=== PATIENT | female | born 1975 | race Caucasian/White ===

== ENCOUNTER → 2017-04-19 | Outpatient (CLI) | payer OTHER | LOC: FIMAGING 16:18 | PROVIDERS: ATTEND Obstetrics & Gynecology | DX: Z12.31 Encounter for screening mammogram for malignant neoplasm of breast (principal) ==

== ENCOUNTER 2017-04-24 09:40 | Emergency (ER) | payer OTHER ==
[2017-04-24 09:46] VITALS: TEMP 98.1
[2017-04-24] MEDS ORDERED: ASPIRIN 81 MG CHEWABLE TAB PO ONE (09:55)
--- NOTE | 2017-04-24 09:57 | EDPHY ---
H & P Stated Complaint: mid abd discomfort since ;today has intermittent burning pain chest Time Seen by Provider: 04/24/17 09:55 HPI/ROS: CHIEF COMPLAINT: Chest pain since this morning with antecedent epigastric pain HISTORY OF PRESENT ILLNESS: 41-year-old female awoke at 8:00 a.m. Complaining of left-sided chest pain radiating to her left upper extremity with dyspnea. The pain is not reproducible with palpation range of motion. No nausea or vomiting. No diaphoresis. She notes for the past 6 days she has been experiencing mild epigastric discomfort with no nausea or vomiting no chest pain. She last exercised 4 days ago, was rock climbing and did not experience chest pain, dyspnea, did not have to cease activity prematurely. REVIEW OF SYSTEMS: A ten point review of systems was performed and is negative with the exception of the items mentioned in the HPI PAST MEDICAL & SURGICAL HISTORY: History of hyperlipidemia. 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 Appears anxious 2) HEAD: Normocephalic, atraumatic 3) HEENT: Pupils equal, round, reactive to light bilaterally. Sclera anicteric. Nasopharynx, oropharynx, clear, no lesions. Ears bilaterally with normal tympanic membranes. 4) NECK: Full range of motion, no meningeal signs. No bruit 5) LUNGS: Clear auscultation bilaterally, no wheezes, no rhonchi, no retractions. 6) HEART: Regular rate and rhythm, no murmur, no heave, no gallop. 7) ABDOMEN: No guarding, no rebound, no focal tenderness, negative McBurney's, negative Chase's, negative Rovsing's, negative peritoneal sign, 8) MUSCULOSKELETAL: Moving all extremities, no focal areas of tenderness, no obvious trauma. No peripheral edema or discoloration. Negative Homans no palpable cord 9) BACK: No CVA tenderness, no midline vertebral tenderness, no fluctuance, no step-off, no obvious trauma, no visual or palpable abnormality. 10) SKIN: No rash, no petechiae. 11) Psychiatric: Patient is oriented X 3, there is no agitation. DIFFERENTIAL DIAGNOSIS: In no particular order, including but not limited to myocardial ischemia, pulmonary embolus, chest wall pain, pleural inflammation and pulmonary infectious causes. - Personal History LMP (Females 10-55): 8-14 Days Ago Current Tetanus Diphtheria and Acellular Pertussis (TDAP): Yes - Medical/Surgical History Hx Asthma: No Hx Chronic Respiratory Disease: No Hx Diabetes: No Hx Cardiac Disease: No Hx Renal Disease: No Hx Cirrhosis: No Hx Alcoholism: No Hx HIV/AIDS: No Hx Splenectomy or Spleen Trauma: No Other PMH: cholesterol - Social History Smoking Status: Current every day smoker Constitutional: Initial Vital Signs Temperature (C) 36.7 C 04/24/17 09:40 Heart Rate 71 04/24/17 09:40 Respiratory Rate 18 04/24/17 09:40 Blood Pressure 101/73 04/24/17 09:40 O2 Sat (%) 99 04/24/17 09:40 O2 Delivery Mode Room Air Allergies/Adverse Reactions: No Known Allergies Allergy (Verified 04/24/17 09:41) Home Medications: Medication Instructions Recorded NK [No Known Home Meds] 04/24/17 Medical Decision Making - Diagnostics Imaging Results: Imaging Impressions Chest X-Ray 04/24/17 09:55 Impression: No significant radiographic abnormality. Specifically, a source for chest pain is not identified. ED Course/Re-evaluation: 9:57 a.m.: Will obtain laboratory studies. Care of patient under supervision of secondary supervising physician Dr Ignacio Russell with whom I discussed case. 11:45 a.m.: Case discussed again with Dr. Ignacio Galloway. Patient has negative 1st set of troponin. Noon would be 4 hr from onset of symptoms. Will obtain repeat troponin. If this is negative will plan on discharge home with close follow-up with PCP and Cardiology. I discussed this with the patient she is agreeable with this. She does state that he is feeling "totally better" at this time. In addition I think that negative D-dimer adequately excludes PE in this patient whom I have a low to medium risk. 1:20 p.m.: Re-evaluation, discussed her negative repeat troponin which I think adequately excludes at a high. Addition, Patient was noted to be exercising vigorously 3 days ago was asymptomatic at that time. I think that cardiac etiology is less than likely in this patient. Plan will be discharge, given follow-up information with Cardiology and her primary care provider. She feels comfortable being discharged. All questions and concerns addressed by myself. Usual customary discharge precautions instructions provided. She is currently asymptomatic. - Data Points Laboratory Results: Laboratory Results 04/24/17 10:10 04/24/17 10:10 04/24/17 04/24/17 04/24/17 12:05 10:10 10:10 WBC RBC Hgb Hct MCV MCH MCHC RDW Plt Count MPV Neut % (Auto) Lymph % (Auto) [place] % (Auto) Eos % (Auto) Baso % (Auto) Nucleat RBC Rel Count Absolute Neuts (auto) Absolute Lymphs (auto) Absolute Monos (auto) Absolute Eos (auto) Absolute Basos (auto) Absolute Nucleated RBC Immature Gran % Immature Gran # D-Dimer Sodium 139 mEq/L mEq/L (135-145) Potassium 4.1 mEq/L mEq/L (3.5-5.2) Chloride 109 mEq/L mEq/L (97-110) Carbon Dioxide 18 mEq/l L mEq/l (22-31) Anion Gap 12 mEq/L mEq/L (8-16) BUN 11 mg/dL mg/dL (7-23) Creatinine 0.9 mg/dL mg/dL (0.6-1.0) Estimated GFR > 60 Glucose 88 mg/dL mg/dL (70-100) Calcium 9.0 mg/dL mg/dL (8.5-10.4) Total Bilirubin 0.6 mg/dL mg/dL (0.1-1.4) Conjugated Bilirubin 0.2 mg/dL mg/dL (0.0-0.5) Unconjugated Bilirubin 0.4 mg/dL mg/dL (0.0-1.1) AST 18 IU/L IU/L (14-46) ALT 37 IU/L IU/L (9-52) Alkaline Phosphatase 44 IU/L IU/L (38-126) Troponin I < 0.012 ng/mL ng/mL < 0.012 ng/mL ng/mL (0.000-0.034) (0.000-0.034) Total Protein 6.3 g/dL g/dL (6.3-8.2) Albumin 3.7 g/dL g/dL (3.5-5.0) Lipase 73 IU/L IU/L (23-300) Beta HCG, Qual NEGATIVE 04/24/17 04/24/17 10:10 10:10 WBC 6.46 10^3/uL 10^3/uL (3.80-9.50) RBC 4.94 10^6/uL 10^6/uL (4.18-5.33) Hgb 14.9 g/dL g/dL (12.6-16.3) Hct 44.4 % % (38.0-47.0) MCV 89.9 fL fL (81.5-99.8) MCH 30.2 pg pg (27.9-34.1) MCHC 33.6 g/dL g/dL (32.4-36.7) RDW 12.3 % % (11.5-15.2) Plt Count 301 10^3/uL 10^3/uL (150-400) MPV 9.5 fL fL (8.7-11.7) Neut % (Auto) 65.0 % % (39.3-74.2) Lymph % (Auto) 26.0 % % (15.0-45.0) [place] % (Auto) 5.9 % % (4.5-13.0) Eos % (Auto) 2.2 % % (0.6-7.6) Baso % (Auto) 0.6 % % (0.3-1.7) Nucleat RBC Rel Count 0.0 % % (0.0-0.2) Absolute Neuts (auto) 4.20 10^3/uL 10^3/uL (1.70-6.50) Absolute Lymphs (auto) 1.68 10^3/uL 10^3/uL (1.00-3.00) Absolute Monos (auto) 0.38 10^3/uL 10^3/uL (0.30-0.80) Absolute Eos (auto) 0.14 10^3/uL 10^3/uL (0.03-0.40) Absolute Basos (auto) 0.04 10^3/uL 10^3/uL (0.02-0.10) Absolute Nucleated RBC 0.00 10^3/uL 10^3/uL (0-0.01) Immature Gran % 0.3 % % (0.0-1.1) Immature Gran # 0.02 10^3/uL 10^3/uL (0.00-0.10) D-Dimer < 0.27 ug/mLFEU ug/mLFEU (0.00-0.50) Sodium Potassium Chloride Carbon Dioxide Anion Gap BUN Creatinine Estimated GFR Glucose Calcium Total Bilirubin Conjugated Bilirubin Unconjugated Bilirubin AST ALT Alkaline Phosphatase Troponin I Total Protein Albumin Lipase Beta HCG, Qual Medications Given: Discontinued Medications Aspirin (Aspirin) 324 mg PO EDNOW ONE Stop: 04/24/17 09:56 Last Admin: 04/24/17 10:16 Dose: Not Given Departure - Departure Disposition: Home, Routine, Self-Care Clinical Impression: Chest pain Condition: Good Instructions: Chest Pain (ED) Additional Instructions: Return to the ER if you develop chest pain, shortness of breath, or any other symptoms that concern you. Referrals: Zahra Grimes MD [Primary Care Provider] - As per Instructions Marlon Rivera MD [Medical Doctor] - 1-2 days without fail (Dr Rivera is a social work nurse)
--- NOTE | 2017-04-24 10:01 | CPEKG ---
Heart Rate: 60 RR Interval: 1000 P-R Interval: 152 QRSD Interval: 84 QT Interval: 428 QTC Interval: 428 P Dougherty: 34 QRS Dougherty: 65 T Wave Dougherty: 55 EKG Severity - NORMAL ECG - EKG Impression: SINUS RHYTHM Electronically Signed By: Dontrell Russell 24-Apr-2017 16:08:07
[2017-04-24 10:21] LABS: PLATELET COUNT 301 10^3/uL (150-400)
[2017-04-24 13:06] VITALS: BP 107/79; PULSE 61; RESP 16; O2SAT 95
== END 2017-04-24 13:37 | disposition home or self-care (01) ==
DX: R07.9 Chest pain, unspecified (principal); F17.200 Nicotine dependence, unspecified, uncomplicated

== ENCOUNTER 2017-06-03 17:09 | Emergency (ER) | payer OTHER ==
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
[2017-06-03] MEDS ORDERED: KETOROLAC 30 MG/1 ML SDV IVP ONE (18:33)
[2017-06-03] MEDS ORDERED: OXYCODONE/APAP 5/325 TAB PO ONE (20:02)
[2017-06-03 21:46] VITALS: BP 112/72
== END 2017-06-03 21:44 | disposition home or self-care (01) ==
LOC: EDUNIT#
DX: S09.90XA Unspecified injury of head, initial encounter (principal); S16.1XXA Strain of muscle, fascia and tendon at neck level, initial encounter; F17.200 Nicotine dependence, unspecified, uncomplicated; Z91.040 Latex allergy status; W22.8XXA Striking against or struck by other objects, initial encounter; Y99.8 Other external cause status; Y93.31 Activity, mountain climbing, rock climbing and wall climbing
CPT/HCPCS: 96374; J1885

== ENCOUNTER 2017-06-08 00:51 | Emergency (ER) | payer OTHER ==
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
[2017-06-08] MEDS ORDERED: NS 1,000 ML IV ONE (01:13)
[2017-06-08] MEDS ORDERED: HYDROmorphONE/DILAUDID 2 MG/ML INJ IVP ONE (01:15)
[2017-06-08] MEDS ORDERED: ONDANSETRON 4 MG/2 ML VIAL IVP ONE (01:15)
[2017-06-08 01:31] LABS: PLATELET COUNT 290 10^3/uL (150-400)
[2017-06-08] MEDS ORDERED: KETOROLAC 15 MG/1 ML SDV IVP ONE (02:47)
[2017-06-08] MEDS ORDERED: PROMETHAZINE HCL 25 MG/ML INJ IVP ONE (03:07)
[2017-06-08 04:43] VITALS: BP 102/69
== END 2017-06-08 04:54 | disposition home or self-care (01) ==
DX: S06.0X0D Concussion without loss of consciousness, subsequent encounter (principal); E86.9 Volume depletion, unspecified; X50.9XXD Other and unspecified overexertion or strenuous movements or postures, subsequent encounter
CPT/HCPCS: 96374; J1170; J1885; J2405; J2550

== ENCOUNTER 2017-11-14 08:49 | Emergency (ER) | payer OTHER ==
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
[2017-11-14 10:58] VITALS: BP 102/69
== END 2017-11-14 10:56 | disposition home or self-care (01) ==
LOC: SUPCPDRO 08:49
DX: S09.90XA Unspecified injury of head, initial encounter (principal); V18.0XXA Pedal cycle driver injured in noncollision transport accident in nontraffic accident, initial encounter; Y93.55 Activity, bike riding; Y92.9 Unspecified place or not applicable; Y99.9 Unspecified external cause status